=== PATIENT | male | born 1960 | race Caucasian/White ===

== ENCOUNTER → 2025-01-19 11:49 | Outpatient (REF) | payer MEDICARE, OTHER, SELFPAY | LOC: RAD 11:49 | PROVIDERS: ATTENDING PHYSICIAN Internal Medicine | DX: I73.9 Peripheral vascular disease, unspecified (principal) | CPT/HCPCS: 75635; Q9967 ==

== ENCOUNTER 2025-02-28 06:06 | Inpatient (IN) | payer MEDICARE, OTHER, SELFPAY ==
[2025-02-27 10:40] VITALS: BMI 28.5
[2025-02-27 11:04] LABS: Hematocrit 45.2 % (39.0-52.0); Hemoglobin 15.6 g/dL (13.0-18.0); Mean Corp Hgb Conc. 34.5 g/dL (33.0-37.0); Mean Corpuscular Volume 85.8 fL (80.0-94.0); Nucleated Red Blood Cells % 0 % (-); Platelet Count 225 10^3/uL (130-400); Red Cell Dist. Width 12.6 % (11.5-14.5)
[2025-02-27 11:14] LABS: INR 1.04; PT 13.9 Sec (11.4-14.6)
[2025-02-27 11:15] LABS: APTT 27.1 Sec (23.4-35.0)
[2025-02-27 11:41] LABS: Blood Urea Nitrogen 11 mg/dl (9-20); Calcium 9.4 mg/dl (8.4-10.2); Carbon Dioxide 24 mmol/L (22-30); Chloride 106 mmol/L (98-107); Estimated Creatinine Clearance 67 ml/min; Glucose 96 mg/dl (70-99); Potassium 4.5 mmol/L (3.5-5.1); Sodium 139 mmol/L (135-145); eGFR > 60.00
[2025-02-28] VITALS (12 sets, daily range): BP systolic 113–136; BP diastolic 70–88; BMI 28.7
--- NOTE | 2025-02-28 07:03 | W.SUR.PREOP ---
Pre-Operative Surgical Note
-
I have examined this patient prior to the performance of the scheduled procedure.
The patient's condition is unchanged from the time of the current History and
Physical and the patient is able to undergo the scheduled procedure.
[2025-02-28] MEDS: NSS 500 IV (07:05)
[2025-02-28] MEDS: PERIDEX 0.12% ORAL RINSE 15 ML PO (07:08)
[2025-02-28] MEDS: BACTROBAN NASAL 1 GRAM NASAL (07:08)
[2025-02-28] MEDS: VANCOCIN 530 MG IV (07:20)
--- NOTE | 2025-02-28 12:34 | W.SUR.POST ---
Surgical Immediate Post Op
Note
Pre Op Diagnosis: PAD
Post Op Diagnosis: PAD
Procedure Performed: Right to left femoral - femoral bypass, right femoral to above knee popliteal bypass with non-reversed ipsilateral vein, RLE completion angiogram
Primary Surgeon: Martinez Humphries MD
Outdoor Emergency Care Technician: JEFFERY Vinson
Anesthesia: GETA
Estimated Blood Loss: 50 ml
Fluids: See anesthesia flowsheet
Drains/Shunts: N/A
Specimens/Cultures: None
Doppler/Duplex/Angio (Y/N): Y, angio
Complications: None
Operative Findings: post prcoedure doppler PT signal at right foot and left Dp signal
[2025-02-28 13:23] LABS: Hematocrit 41.1 % (39.0-52.0); Hemoglobin 14.1 g/dL (13.0-18.0); Mean Corp Hgb Conc. 34.3 g/dL (33.0-37.0); Mean Corpuscular Volume 86.0 fL (80.0-94.0); Platelet Count 210 10^3/uL (130-400); Red Cell Dist. Width 12.6 % (11.5-14.5)
[2025-02-28 13:34] LABS: Glucose - Point of Care 123 mg/dl (70-99)
[2025-02-28 13:37] LABS: Blood Urea Nitrogen 10 mg/dl (9-20); Calcium 8.4 mg/dl (8.4-10.2); Carbon Dioxide 22 mmol/L (22-30); Chloride 108 mmol/L (98-107); Estimated Creatinine Clearance 74 ml/min; Glucose 133 mg/dl (70-99); Potassium 4.9 mmol/L (3.5-5.1); Sodium 136 mmol/L (135-145); eGFR > 60.00
--- NOTE | 2025-02-28 13:50 | CON.INTV ---
Consultation
Consultation Request
Date/Time Consultation Requested: 02/28
Date/Time Consultation Performed: 02/28
Reason for Consultation: Critical care
Medical History
-
History of Present Illness:
History obtained from the chart and reviewing outpatient records, and also history from sister by phone (Dr. Cindy Cardoza). 64-year-old male with history of hypercholesterolemia, peripheral arterial disease, who is found to have significant
arterial disease based on imaging done at [facility] earlier this year. Symptoms worsened despite extensive exercise program. Patient is now status post right fem-femoral bypass and angiogram, minimal blood loss, postprocedure Doppler signal
intact. We are asked to help from critical care standpoint 02/28/2025.
Patient evaluated in the PACU. He is without complaints. Denies any pain, shortness of breath, nausea, abdominal pain
.
PMH: History of BPH, bipolar disorder, bilateral inguinal hernia repair in , hypercholesteremia
Past Medical History
Past Medical History: None (See above)
Past Surgical History: None (See above)
Social History
Tobacco: Former Smoker (48 py, Quit 2023)
Alcohol: Daily (quit 2019)
Drug: None
Personal:
Living: Alone (lives in [place])
Employment: Employed (geology)
Family History
Family History: Other (Father from lymphoma age 56. Mother with dementia, aortic stenosis. Siblings healthy)
Allergies / Home Medications
Allergies
Allergy/AdvReac Type Severity Reaction Status Date / Time
Penicillins Allergy seizures Verified 02/28/25 06:54
Home Medications
�Medication �Instructions �Recorded �Confirmed �Last Taken �Type
alfuzosin 10 mg tablet,extended 10 mg PO DAILY Urinary Issue 02/22/25 02/28/25 02/28/25 04:00 History
release 24 hr
aripiprazole 15 mg tablet (Abilify) 15 mg PO DAILY Mental 02/22/25 02/28/25 02/28/25 04:00 History
Health/Anxiety
aspirin 81 mg capsule 81 mg PO DAILY Blood Clot 02/22/25 02/28/25 02/28/25 04:00 History
Prevention/Tx
atorvastatin 20 mg tablet 20 mg PO DAILY High Cholesterol 02/22/25 02/28/25 02/28/25 04:00 History
bupropion HCl 300 mg 24 hr tablet, 300 mg PO DAILY Mental 02/22/25 02/28/25 02/28/25 04:00 History
extended release (Wellbutrin XL) Health/Anxiety
escitalopram oxalate 20 mg tablet 20 mg PO DAILY Mental 02/22/25 02/28/25 02/28/25 04:00 History
(Lexapro) Health/Anxiety
Review of Systems
-
All other systems: Negative unless noted
Vitals / Labs / Diagnostic Testing
Vital Signs
Temp Pulse Resp BP Pulse Ox
97.6 F 96 16 113/71 96
02/28/25 13:08 02/28/25 13:45 02/28/25 13:45 02/28/25 13:30 02/28/25 13:45
Lab Data
02/28/25 13:15
02/28/25 13:15
Diagnostic Testing:
Physical Exam
-
HEENT: Normocephalic, Anicteric and Other (a line)
Cardiovascular: S1/S2, Regular Rhythm, Murmur (n), Rub (n) and Peripheral Edema (n)
Respiratory: Wheeze (n), Rales (n), Rhonchi (n) and Non-Labored Respirations
GI: Soft, Non Distended and Non Tender
Neurology: Awake, Alert and Other (moves all extremities)
Skin: Good Color
General: Comfortable
Assessment
-
64-year-old male with history of hypercholesterolemia, with persistent progressive claudication symptoms status post right to left femoral-femoral bypass and right femoral to above knee popliteal bypass 02/28/2025
S/p Rt to left fem-femoral bypass, right femoral to above-knee popliteal bypass
02/28/2025
Persistent, progressive claudication symptoms
Conditions present prior to admission
Hypercholesterolemia
History of bipolar disorder
BPH
67-bhja-umbn history of smoking quit 2023
Alcohol history, quit 2019
Plan/recommendations
At this time, patient is critically ill but appears to be comfortable
Is without pain at this time. Pulses intact, feet are warm. Bilateral groin dressing intact
According to sister, patient has a very 'addictive personality'. She is concerned about narcotic therapy, but accepts that he will need it.
IV fluids, pain management per vascular protocol
Vascular checks per protocol
Patient has seen cardiology preadmission, deemed low risk from cardiac standpoint.
Preprocedure EKG reviewed. Normal sinus rhythm
EKG upon arrival to ICU
Chest x-ray upon arrival to ICU
Reviewed with PACU nursing
We will follow
TCCT 31 min
[2025-02-28] MEDS: NSS 1000 IV (14:55)
--- NOTE | 2025-02-28 15:00 | PTCARENOTE ---
Received patient from PACU. patient is AAOx4. He is on simple mask per protocol, saturating 100%. Patient is sinus rhythm on monitor. , he will be advanced to a cholesterol lowering diet as tolerated. Patient has indwelling urinary catheter.
Has 4 SUREKHA drains/dressings. left groin, right groin, right inner thigh, right calf. left SUREKHA is blinking green, right leg surekha is blinking orange. Patient has pulses by doppler. left PT has been fleeting. Patient denies any numbness or
decreased sensation. Will review orders, admission assessment completed, patient's sister at bedside.
[2025-02-28] MEDS: TYLENOL 650 MG PO (15:31)
--- NOTE | 2025-02-28 15:54 | OR.RPT ---
Operative Report
Operative Report
PROCEDURE DATE: 02/28/2025
Preoperative diagnosis: Severe PAD with multilevel disease, debilitating claudication bilateral lower extremities.
Postoperative diagnosis: Same
Procedure:
1. Right to left femoral artery bypass with 8 mm ringed Propaten graft.
2. Right femoral to [id number]-ffa-[id number] popliteal artery bypass with ipsilateral nonreversed greater saphenous vein conduit.
3. Diagnostic aortogram and pelvic angiogram.
Surgeon: Yandel
Title Investigator: LANI Powell, required for aspects of procedure including assistance with traction/countertraction, following a suture line, assistance with closure.
Complications: None
Anesthesia: General
Indications for procedure:
Debilitating bilateral lower extremity claudication. Severe peripheral arterial disease multilevel disease. Discussed plan for right to left femoral to femoral artery bypass with right femoral to [id number] popliteal artery bypass. Discussed
exploring the vein as it appeared slightly smaller on CT scan imaging though vein mapping appeared reasonable. Risk/benefits/alternatives of procedure were fully discussed. Patient understood and wished to proceed.
Description of procedure:
Patient was identified brought to the operating room placed on the table in supine position. After the adequate administration of anesthesia he was prepped and draped in the standard surgical fashion. A standard preoperative timeout was undertaken
and everybody was in agreement the plan. A longitudinal incision was made in the right groin is carried through the skin to be tendinous tissue. Electrocautery was used to dissect down to the level of the inguinal ligament. Any crossing lymphatic
type structures were ligated tween silk ties and then divided. Self-retaining retractors were placed. The common femoral artery was identified as emerged from underneath the inguinal ligament. There was a very short common femoral artery with a
high bifurcation. Proximal profunda and superficial femoral artery were carefully circumferentially dissected and Vesseloops passed around it. There was a reasonable pulse in the artery. There is a good pulse in the profundus as well which was
completely soft. The SFA had a pulse at the very origin but then did not consistent with CT scan findings. Once I mobilized and controlled the common femoral and these branches, I then turned my attention to the left groin.
A longitudinal incision was made in the left groin similarly. This was carried through the skin to be tendinous tissue and electrocautery used to dissect down to the level of the inguinal ligament. Any crossing lymphatic type structures ligated
between silk ties and divided. Self-retaining retractors placed. Common femoral artery was identified as emergent underneath it in the ligament. It was a relatively soft vessel. There is no pulsation in it. Slightly longer length of common
femoral into the bifurcation, and a more normal-appearing bifurcation (on the right side the bifurcation was sort of splayed laterally, but on the left side a more normal anatomic appearing profunda more posterior and slightly lateral than straight
lateral to the SFA). I dissected the profunda beyond its origin and it was noted to be soft. Vessel loop passed around it. I dissected the SFA after a couple centimeters of mobilization and then passed a vessel Brana. It was also noted to be
soft. Note a suprapubic subcutaneous tunnel was created using aortic clamp and a an umbilical tape passed through the tunnel to hold the place for passage of our femoral to femoral artery bypass graft.
Now I turned my attention to expose the above-knee popliteal artery. A longitudinal incision was made in the medial distal right thigh that was carried through the skin to be tames tissue. Electrocautery was used to dissect through the crural
fascia layer and then through the loose areolar fatty tissue. I then identified the popliteal artery above the knee. I carefully dissected away from anserine structures and great care to avoid injury to structures. I passed a vessel loop around
proximally and distally after circumferential dissection.
Now I turned my attention to mobilizing the greater saphenous vein. Skip incisions were made through the medial right thigh and proximal calf extending just beyond the groin down to the below the knee level. Through the skip incisions the greater
saphenous vein was fully mobilized. Any branches were ligated between silk ties and clips and then divided. Once I mobilized a suitable length of greater saphenous vein, I ligated approximately (there was still a few branches until the
saphenofemoral junction) with a silk suture ligature and a clip. I then transected. Distally I ligated with a heavy silk tie and a clip. I then transected there. I then distended the vein under heparinized saline. It distended very well. We
elected to maintain it in a nonreversed fashion.
Now a Mela tunneler was used to create a subsartorial tunnel. This tunneled between the right femoral artery exposure site and the [id number] popliteal artery exposure site. With the Mela tunneler in place, the patient was given an
appropriate dose of heparin (7000 units). After circulation of heparin, I turned my attention to the left groin. The profunda was clamped with a profunda clamp. The SFA was similarly clamped distally. The common femoral artery was then clamped
as well. A longitudinal arteriotomy was made on the common femoral artery extending onto the SFA. The 8 mm ringed [place] Propaten graft was then tunneled through the suprapubic tunnel. An arteriotomy was made in the left common femoral artery
extending onto the proximal SFA. I now beveled the graft in the left groin and sewed an end to side anastomosis between the graft and the common femoral hoding over the profunda origin onto the SFA. Of note I inspected the origin of the profunda,
and it was widely patent with no clear evidence of stenosis. At least 3 mm origin was noted. This anastomosis was fashioned using a running [place] CV 6 suture. I then completed and tied down the suture line. Next I released my clamps on the [place]
artery and clamped the graft. There was good flow through the [place] artery system (albeit not pulsatile) and I backbled through the graft. Hemostasis was noted.
Now I turned my attention to the right groin. I then clamped the profunda well distally. I elected to try to anastomose the femoral to femoral graft on the common femoral hooding onto the profunda. But then I isolated a location slightly more
distal on the profunda (long segment of profunda without any branches beyond the origin allowed for this) so as to sew the proximal anastomosis of the vein bypass graft. The profunda was clamped distally and the common femoral artery was also
clamped. (Derra clamp). SFA had a vessel loop which was double looped and tightened. Therefore I now made an arteriotomy on the common femoral artery with an 11 blade and extended with the Parry scissors onto the very origin of the profunda. I
then removed the rings on the bypass graft after trimming it. I then beveled it. And sewed an end-to-side anastomosis using a running [place] CV 6 suture. Prior to completing and tying down my suture line I backbled the [place] artery and then
flushed out the graft by temporarily releasing the graft clamp, and then completed and tied my suture line after flushing heparinized saline. I now released clamps. There was excellent pulsatile flow into the graft. I could now feel good
pulsation in the left groin and the graft and into the SFA and profunda on the left side as well. Hemostasis was noted.
Now I reclamped the right common femoral artery and profunda and tightened vessel loop on SFA. I clamped the graft as well. I now made an arteriotomy on the profunda distal to the graft anastomosis. This was done with an 11 blade. I extended
using a Parry scissor. I now brought the saphenous vein onto the field and spatulated it and sewed an end-to-side anastomosis to the profunda here using a running 6-0 Prolene suture. I completed and tied down my suture line. Next I released
clamps on the right femoral system. There was now excellent pulsatile flow into the vein bypass graft. I now used a [place] valvulotome and ran it through twice to confirm no retained valves to valvulotomize the vein graft. Once I did this I
marked the anterior surface under distention to avoid any kinking or twisting and then passed it through the tunnel that I created prior. I now placed a bulldog clamp on the vein graft.
Now I turned my attention to the [id number]-[id number] popliteal exposure with the vein bypass graft here in the field. I elected to do an end-to-end anastomosis as based on the CT scan imaging there was no proximal flow in the SFA proximal to the
popliteal exposure site. (No reason for an end to side anastomosis/no advantage). Therefore after clamping the popliteal artery distally, I ligated the popliteal artery proximally with a heavy silk tie as well as a silk suture ligature. I then
transected it (a local branch was ligated between silk ties and divided to allow this. There was a little bit of plaque and therefore I retransected it more distally. There was still little plaque which I locally endarterectomized a small portion
of plaque and then the wall looked good. Now is satisfied. I then trimmed and slightly spatulated the distal aspect of the vein bypass graft and sewed an end-to-end anastomosis to the popliteal artery here using a running 6-0 Prolene suture.
Prior to completing and tying down my suture line I backbled the [place] popliteal artery, I then flushed out the vein bypass graft. I flushed heparinized saline. I then completed and tied down my suture line. Next I released my clamp on the
popliteal artery distally and released the bulldog clamp on the vein graft. There is now good pulsatile flow into the popliteal artery. Doppler confirmed excellent phasic signal as well as a phasic signal at the posterior tibial artery at the
ankle. These were completely graft dependent signals. At this point I was satisfied.
However I elected to confirm that there was no significant inflow issue (on that CT scan there was a question as to whether there was an external iliac artery stenosis to my interpretation). I therefore then inserted a micropuncture needle and then
catheter over the micropuncture wire into the fluid of the right limb of the femoral to femoral artery bypass in a retrograde fashion into the iliac system. Aortogram and pelvic angiogram demonstrated patent right common and external iliac artery.
There was just mild stenosis in the proximal external iliac artery diffusely but it really was not significant, certainly less than 30%. There was no major stenosis otherwise just luminal irregularities throughout. I could see good filling into
the femoral to femoral artery bypass into the left groin/profundus/SFA. I could see the proximal vein bypass graft filling briskly as well. At this point I was very satisfied. I then removed the micropuncture sheath and repaired the small sheath
entry site with [id number] 6-0 Prolene suture. Hemostasis was fully achieved.
I then meticulously achieved hemostasis at all surgical sites. Protamine was given reverse the heparin. Then all sites were irrigated. Hemostasis was confirmed. The saphenectomy sites were closed with running 3-0 Vicryl followed by skin clips.
The bilateral groin incisions and the above-knee popliteal artery exposure incision sites were closed with layers of 2-0 Vicryl followed by 3-0 Vicryl followed by skin clips. Dressings were applied. All sponge, needle, instrument counts were
correct at the end of the case. The patient tolerated procedure well. He was transported to recovery room in stable condition.
[2025-02-28] MEDS: ROXICODONE 5 MG PO ×2 (16:33→20:57)
[2025-02-28] MEDS: DILAUDID 0.5 MG IV ×2 (17:49→21:56)
--- NOTE | 2025-02-28 20:00 | PTCARENOTE ---
assumed care, pt Ox3, able to make needs known, c/o 12/19 R groin pain refer to MAR, Sinus on the monitor, doppler pulses, trace to LE, R rad A-line zeroed, lungs clear SpO2 100 2L NC, BSx4, thermistor cantu c yellow output, Q1 neurovascular checks
per worklist, x4 SUREKHA drains (R and L groin, R thigh, and R calf), nghia hugger applied to LE, 20G RFA, 18G LFA, NS 80ml, Hep 5ml per order, vascular FIRE ENGINE PUMP OPERATOR made rounds, call blackman within reach, otherwise refer to documentation.
[2025-03-01] VITALS (13 sets, daily range): BP systolic 97–168; BP diastolic 53–102; BMI 30.1
--- NOTE | 2025-03-01 00:06 | PTCARENOTE ---
systems reviewed, no changes from previous assessment, CHG bath, otherwise refer to documentation
[2025-03-01] MEDS: NSS 1000 IV (00:56)
[2025-03-01] MEDS: DILAUDID 0.5 MG IV (02:18)
[2025-03-01 04:09] LABS: Hematocrit 35.6 % (39.0-52.0); Hemoglobin 12.2 g/dL (13.0-18.0); Mean Corp Hgb Conc. 34.3 g/dL (33.0-37.0); Mean Corpuscular Volume 86.4 fL (80.0-94.0); Platelet Count 193 10^3/uL (130-400); Red Cell Dist. Width 12.7 % (11.5-14.5)
--- NOTE | 2025-03-01 04:09 | PTCARENOTE ---
systems reviewed, labs sent, weight obtained, otherwise refer to documentation
[2025-03-01 04:26] LABS: INR 1.10; PT 14.7 Sec (11.4-14.6)
[2025-03-01 04:27] LABS: APTT 31.1 Sec (23.4-35.0)
[2025-03-01 04:42] LABS: Blood Urea Nitrogen 12 mg/dl (9-20); Calcium 8.0 mg/dl (8.4-10.2); Carbon Dioxide 24 mmol/L (22-30); Chloride 109 mmol/L (98-107); Estimated Creatinine Clearance 82 ml/min; Glucose 108 mg/dl (70-99); Potassium 4.6 mmol/L (3.5-5.1); Sodium 137 mmol/L (135-145); eGFR > 60.00
--- NOTE | 2025-03-01 07:18 | W.PN.INTV ---
Today's Communication / Plan
Recommendations
Check EKG
Replete calcium
Pain control, minimize if able. Sister states patient has 'addictive personality'
Anticoagulation per vascular
Keep in ICU today
Assessment
-
64-year-old male with history of hypercholesterolemia, with persistent progressive claudication symptoms status post right to left femoral-femoral bypass and right femoral to above knee popliteal bypass 02/28/2025
S/p Rt to left fem-femoral bypass, right femoral to above-knee popliteal bypass
02/28/2025
Persistent, progressive claudication symptoms
Conditions present prior to admission
Hypercholesterolemia
History of bipolar disorder
BPH
[id number] history of smoking quit 2023
Alcohol history, quit 2019
Plan/recommendations
At this time, patient appears to be comfortable, in good spirits
Hemodynamically stable
Calcium level 8.0
Is without pain at this time. Pulses intact, feet are warm.
Chest x-ray unremarkable
Moving forward
Continue with management per vascular surgery
Macdonald catheter, A-line to be discontinued
Patient being transition to Compass protocol with aspirin, Xarelto, Heparin to be discontinued
According to sister, patient has a very 'addictive personality'. She is concerned about narcotic therapy, but accepts that he will need it.
IV fluids, pain management per vascular protocol
Hopefully can minimize pain meds as able
Vascular checks per protocol
Patient has seen cardiology preadmission, deemed low risk from cardiac standpoint.
Preprocedure EKG reviewed. Normal sinus rhythm
Obtain EKG
Reviewed with critical care nursing
We will follow
Subjective Dataa
Subjective Data
Date of Service:
Date of Service: March 01, 2025
Subjective:
Patient feels well. Denies shortness of breath, chest pain, lightheadedness. Primary complaint is leg pain
Objective Data
Data Reviewed
Vital Signs / I&O / Oxygen:
Vital Signs
Temp Pulse Resp BP Pulse Ox
98.3 F 66 10 123/72 99
03/01/25 04:09 03/01/25 06:00 03/01/25 06:00 02/28/25 19:00 03/01/25 06:00
Intake and Output
02/28/25 03/01/25 03/02/25
06:59 06:59 06:59
Intake Total 2039 / 2039
Output Total 2274 / 2274
Balance -235 / -235
SaO2 99
Nasal Cannula flow liters per 2
minute
Physical Exam
General: Comfortable
HEENT: Normocephalic and Anicteric
Cardiovascular: S1-S2, Regular Rhythm, Murmur (n), Rub (n) and Other (Right groin intact)
Respiratory: Wheeze (n), Crackles (n), Rhonchi (n) and Non-Labored Respirations
GI: Soft, Non Distended and Non Tender
Neurology: Awake, Alert and No Motor Deficits
Skin: Cyanosis (n), Jaundice (n) and Rash (n)
Labs/Micro/Reports
Lab Data
03/01/25 04:04
03/01/25 04:04
Laboratory Results
02/28/25 03/01/25
16:09 04:04
PT Cancelled 14.7 H
INR Cancelled 1.10
APTT Cancelled 31.1
[2025-03-01] MEDS: ASPIR LOW (ENTERIC COATED) 81 MG PO (07:35)
[2025-03-01] MEDS: FLOMAX 0.4 MG PO (07:35)
[2025-03-01] MEDS: WELLBUTRIN XL (24 hour extended release) 300 MG PO (07:36)
[2025-03-01] MEDS: PROTONIX 40 MG PO (07:36)
[2025-03-01] MEDS: LIPITOR 20 MG PO (07:36)
[2025-03-01] MEDS: ROXICODONE 5 MG PO ×4 (07:36→20:56)
[2025-03-01] MEDS: LEXAPRO 20 MG PO (07:36)
[2025-03-01] MEDS: TYLENOL 650 MG PO (07:37)
--- NOTE | 2025-03-01 07:50 | W.PN.VS ---
Addendum entered and electronically signed by Martinez Humphries MD 03/01/25 09:40:
Seen and examined with LANI Campos. Agree with findings as noted below. Patient without significant complaints. Bilateral groin and right lower extremity dressings are clean dry and intact. No hematomas noted. Right foot warm with excellent
dopplerable DP signal. Left foot warm with good dopplerable signals. Plan/as discussed and noted below.
Original Note:
Today's Communication / Plan
-
Patient seen and examined at bedside with Dr. Martinez Humphries M.D., below plan reviewed with attending.
Assessment/Plan
-
Assessment: 64-year-old male POD #1 Right to left femoral artery bypass with 8 mm ringed Propaten graft. Right femoral to [id number]-rly-[id number] popliteal artery bypass with ipsilateral nonreversed greater saphenous vein conduit. Diagnostic aortogram and
pelvic angiogram.
Plan:
Discontinue IV fluids
Discontinue arterial line
Out of bed to chair today, will progress ambulation tomorrow
Discontinue Donato hugger
Discontinue Macdonald catheter
Discontinue heparin infusion and transition to Compass protocol of 81 mg p.o. daily and Xarelto 2.5 mg p.o. twice daily
Continue ICU level care today
Continue neurovascular checks
Subjective Data
-
Date of Service: March 01, 2025
Patient seen examined at bedside, reports well-managed postoperative pain. Denies nausea, vomiting, fever, and chills.
Objective Data
-
Vital Signs
Temp Pulse Resp BP Pulse Ox
98.4 F 73 13 104/59 98
03/01/25 07:30 03/01/25 07:30 03/01/25 07:30 03/01/25 07:30 03/01/25 07:30
Intake and Output
02/28/25 03/01/25 03/02/25
06:59 06:59 06:59
Intake Total 2039
Output Total 2274 150 / 150
Balance -235 / -300 -65 / -65
Intake:
Oral fluids 480 / 480
IV fluids (Total) 1559
Heparin 80 / 5 / 5
NSS 200 / 200
Nss 1,000 ml @ 80 mls/hr IV . 1280 / 1360 80 / 80
[id number] ELSA Rx#:[id number]
Output:
Urine, Macdonald 2274 150 / 150
Lab Results
03/01/25 04:04
03/01/25 04:04
Calcium 8.0 mg/dl (8.4-10.2) L 03/01/25 04:04
Physical Exam
-
No apparent distress, resting bed comfortably
No tachycardia
No dyspnea on room air
ABD rotund, nontender, nondistended
Right lower extremity [place] dressing clean, dry, and intact, right foot warm, right DP and PT signal by Doppler
Left groin dressing clean, dry, and intact, left foot warm, left DP signal by Doppler
Macdonald draining clear yellow urine
[2025-03-01] MEDS: ABILIFY 15 MG PO (08:29)
[2025-03-01] MEDS: XARELTO 2.5 MG PO ×2 (08:29→19:57)
[2025-03-01] MEDS: CALCIUM GLUCONATE 100 IV (09:30)
--- NOTE | 2025-03-01 09:46 | PTCARENOTE ---
Bedside check of dressings and pulses done with change of shift this am and without change. IVF and heparin gtts, иринаalondra solis and Donato claritagger have been discontinued as ordered. Pt medicated for pain as charted. Assisted oob to chair with min
assist of 1. Increased pain noted to both groins and R knee with movement, up in chair. Pt aware that this is normal. Sat in chair with feet down for an hour, then reclined. Pain improved with reclining. Tolerated breakfast. Encouraged to do
ROM to assist with swelling/pain/movement while in chair. Using IS with reminder. Initiated on Xarelto as ordered. [employer] education materials given regarding safely taking blood thinners and on Xarelto. Call blackman in reach. Otherwise please
see work list.
[2025-03-01] MEDS: TYLENOL 1000 MG PO ×3 (11:15→23:38)
--- NOTE | 2025-03-01 12:42 | CM ---
Addendum entered by Selma Baron 03/01/25 14:10:
following discussion referral also sent to [facility] [phone]. CM and [facility] liaison will review options with Dr. Cardoza for confirmation of plan.
Addendum entered by Selma Baron 03/01/25 13:50:
Dr. Cardoza spoke with [place] and plan is for referral to send [facility] for follow up at discharge after stay in [place] with his sisters. will send referral to [facility] via all scripts.
Original Note:
Patient seen at bedside in ICU with patient sister, Dr. Cardoza also present. Patient plan is for discharge home to [facility] with his sisters also present to support patient and sister, Dr. Cardoza indicated her plan to complete wound care her self.
Patient sister, stated she will contact PCP if patient continues to need VN services when he returns to home in [place]. Patient sisters very attentive and plans to contact [facility] if patient needs continued supports. URI spoke with liaison with
[facility] and she will meet with patient sister to review plan when medically appropriate for discharge. CM will continue to follow for discharge planning needs.
Plan; home with patient sisters, [facility] to follow as needed.
--- NOTE | 2025-03-01 13:15 | PTCARENOTE ---
Pt returned to bed again with minimal assist. Pain 10/10 when standing with weight on r leg, but improved when back in bed. Medicated as charted. Sister in to see pt and updated.
--- NOTE | 2025-03-01 14:15 | PTCARENOTE ---
Pt sleeping in bed.
--- NOTE | 2025-03-01 16:42 | PTCARENOTE ---
Pt napped for a couple hours. Groin sites unchanged. Pulses consistent. Hadn't voided since cantu removed, bladder scanned for 454 and pt then voided 450.
--- NOTE | 2025-03-01 20:44 | PTCARENOTE ---
Received pt resting in bed, AAOx3. C/O 01/18 pain to RLE and ribs (from recent fall) but expresses he wants to wait until oxycodone due again ~2099. SR on tele. HR 60-70. Afebrile. B/L DP and PT pulses by doppler. Trace LE edema. On RA, spo2 96%.
Lungs dim at bases with fine crackles L base. I.S. encouraged - reached 1999. RLE and L groin with SUREKHA drains. Q4 neurovasc checks ongoing
[2025-03-01 22:02] LABS: Hepatitis C Antibody Reactive (Negative)
--- NOTE | 2025-03-01 23:58 | PTCARENOTE ---
No changes in assessment. Pt resting when undisturbed
[2025-03-02] VITALS (21 sets, daily range): BP systolic 101–145; BP diastolic 58–97; PULSE 88; O2SAT 98; BMI 29.7
[2025-03-02 04:58] LABS: Hematocrit 38.3 % (39.0-52.0); Hemoglobin 13.1 g/dL (13.0-18.0); Mean Corp Hgb Conc. 34.2 g/dL (33.0-37.0); Mean Corpuscular Volume 87.4 fL (80.0-94.0); Platelet Count 165 10^3/uL (130-400); Red Cell Dist. Width 12.8 % (11.5-14.5)
[2025-03-02] MEDS: ROXICODONE 5 MG PO ×4 (05:03→20:32)
[2025-03-02 05:24] LABS: Blood Urea Nitrogen 12 mg/dl (9-20); Calcium 8.8 mg/dl (8.4-10.2); Carbon Dioxide 26 mmol/L (22-30); Chloride 105 mmol/L (98-107); Estimated Creatinine Clearance 74 ml/min; Glucose 99 mg/dl (70-99); Potassium 4.3 mmol/L (3.5-5.1); Sodium 137 mmol/L (135-145); eGFR > 60.00
--- NOTE | 2025-03-02 07:16 | W.PN.INTV ---
Today's Communication / Plan
Recommendations
Pain management continues
Bowel regimen
Anticoagulation per vascular protocol
Patient qualifies for lung cancer screening. Would recommend outpatient low dose CT imaging
Reviewed with patient's sister at bedside who is a physician
Patient transferred out of ICU. We will sign off. Please call with questions
Assessment
-
64-year-old male with history of hypercholesterolemia, with persistent progressive claudication symptoms status post right to left femoral-femoral bypass and right femoral to above knee popliteal bypass 02/28/2025
S/p Rt to left fem-femoral bypass, right femoral to above-knee popliteal bypass
02/28/2025
Persistent, progressive claudication symptoms
Conditions present prior to admission
Hypercholesterolemia
History of bipolar disorder
BPH
[id number] history of smoking quit 2023
Alcohol history, quit 2019
Plan/recommendations
At this time, patient appears to be comfortable, in good spirits
Hemodynamically stable
Pain is controlled
Receiving Tylenol [id number]
Passing gas, has yet to move bowels
Moving forward
Continue with management per vascular surgery
Macdonald catheter discontinued
Patient transitioned to Compass protocol with aspirin, Xarelto 2.5 mg twice a day
Vascular checks per protocol, pulses intact
Patient has seen cardiology preadmission, deemed low risk from cardiac standpoint.
Preprocedure EKG reviewed. Normal sinus rhythm
EKG within normal limits
Reviewed with critical care nursing
Reviewed with sister at bedside
Patient qualifies for lung cancer screening.
Would consider low-dose lung cancer screening at some point postdischarge. Reviewed with sister who is a physician
Patient transferred out of ICU. We will sign off. Please call with questions
Subjective Dataa
Subjective Data
Date of Service:
Date of Service: March 02, 2025
Subjective:
Patient feels well. Pain is controlled. Has some mild left hip discomfort, states that he fell out of bed prior to admission. Otherwise denies lightheadedness, shortness of breath, cough, abdominal pain. Sister at bedside. Patient sitting in
chair
Objective Data
Data Reviewed
Vital Signs / I&O / Oxygen:
Vital Signs
Temp Pulse Resp BP Pulse Ox
97.4 F 69 12 125/63 96
03/02/25 07:13 03/02/25 06:00 03/02/25 06:00 03/02/25 06:00 03/01/25 20:00
Intake and Output
03/01/25 03/02/25 03/03/25
06:59 06:59 06:59
Intake Total 2040 / 2125 1550 / 1550
Output Total 2275 / 2575 2175 / 2175 250 / 250
Balance -235 / -450 -625 / -625 -250 / -250
SaO2 96
Nasal Cannula flow liters per 2
minute
Physical Exam
General: Comfortable
HEENT: Normocephalic and Anicteric
Cardiovascular: S1-S2, Regular Rhythm, Murmur (n), Rub (n), Other (Pulses present) and Other (Right groin intact, right lower extremity bandage in place)
Respiratory: Wheeze (n), Crackles (Few at base), Rhonchi (n) and Non-Labored Respirations
GI: Soft, Non Distended and Non Tender
Neurology: Awake, Alert and No Motor Deficits
Skin: Cyanosis (n), Jaundice (n) and Rash (n)
Labs/Micro/Reports
Lab Data
03/02/25 04:47
03/02/25 04:47
[2025-03-02] MEDS: TYLENOL 1000 MG PO ×2 (07:57→13:54)
[2025-03-02] MEDS: LIPITOR 20 MG PO (07:58)
[2025-03-02] MEDS: WELLBUTRIN XL (24 hour extended release) 300 MG PO (07:58)
[2025-03-02] MEDS: PROTONIX 40 MG PO (07:58)
[2025-03-02] MEDS: ABILIFY 15 MG PO (07:58)
[2025-03-02] MEDS: XARELTO 2.5 MG PO ×2 (07:58→20:31)
[2025-03-02] MEDS: LEXAPRO 20 MG PO (07:58)
[2025-03-02] MEDS: FLOMAX 0.4 MG PO (07:58)
[2025-03-02] MEDS: ASPIR LOW (ENTERIC COATED) 81 MG PO (07:58)
--- NOTE | 2025-03-02 08:17 | W.PN.VS ---
Addendum entered and electronically signed by Pravin Macdonald III, MD 03/02/25 10:48:
This patient was seen and examined in collaboration with JEFFERY Vinson. I agree with the history and physical exam as well as the assessment and plan.
Signed:
Pravin Macdonald III, MD
Vascular Surgery
[facility]
Original Note:
Today's Communication / Plan
-
Seen and assessed with Dr. Macdonald
Assessment/Plan
-
Assessment: 64-year-old male POD #2 Right to left femoral artery bypass with 8 mm ringed Propaten graft. Right femoral to [id number] popliteal artery bypass with ipsilateral nonreversed greater saphenous vein conduit. Diagnostic aortogram and
pelvic angiogram.
Plan:
PT/Ambulation
Discharge planning
Continue Compass protocol of 81 mg p.o. daily and Xarelto 2.5 mg p.o. twice daily
Transfer to telemetry 2 [place], 2 [facility]
Subjective Data
-
Date of Service: March 02, 2025
Patient seen at bedside this a.m. with Dr. Macdonald. Patient offers no complaints this time. No events overnight.
Objective Data
-
Vital Signs
Temp Pulse Resp BP Pulse Ox
97.4 F 79 12 139/73 96
03/02/25 07:13 03/02/25 08:00 03/02/25 08:00 03/02/25 08:00 03/01/25 20:00
Intake and Output
03/01/25 03/02/25 03/03/25
06:59 06:59 06:59
Intake Total 2039 / 2124 1550 / 1550
Output Total 2275 / 2575 2175 / 2175 250 / 250
Balance -235 / -450 -625 / -625 -250 / -250
Intake:
Oral fluids 480 / 480 1360 / 1360
IV fluids (Total) 1560 / 1645 90 / 90
Heparin 80 / 85 10 / 10
NSS 200 / 200
Nss 1,000 ml @ 80 mls/hr IV . 1280 / 1360 80 / 80
[id number] ELSA Rx#:[id number]
IV piggybacks 100 / 100
Output:
Urine, Macdonald 2275 / 2575 525 / 525
Urine, Voided 1650 / 1650 250 / 250
Lab Results
03/02/25 04:47
03/02/25 04:47
Calcium 8.8 mg/dl (8.4-10.2) 03/02/25 04:47
Physical Exam
-
No apparent distress, resting bed comfortably
No tachycardia
No dyspnea on room air
ABD rotund, nontender, nondistended
Right lower extremity Tisha dressing clean, dry, and intact, right foot warm, right DP and PT signal by Doppler
Left groin dressing clean, dry, and intact, left foot warm, left DP signal by Doppler
--- NOTE | 2025-03-02 08:29 | PTCARENOTE ---
Rec'd care of patient at 0700. Patient alert and oriented. MAEx4. NSR on tele. Q4hr b/l LE neurovascular checks continued; see worklist. B/l groin and RLE nyla drains maintained. Pulse ox 97-98% on RA. Lung sounds diminished in b/l bases. IS
encouraged. +BS. Appetite good. Voiding via urinal. Assisted oob to chair at 0810. See worklist for full assessment and care. Downgraded to tele level.
[2025-03-02] MEDS: DILAUDID 0.5 MG IV (12:09)
--- NOTE | 2025-03-02 15:04 | TRANSFER ---
Patient transferred with belongings to . SUREKHA dressings changed by vascular screenplay writer prior to transfer.
--- NOTE | 2025-03-02 15:15 | CM ---
Addendum entered by Selma Baron 03/02/25 16:12:
Patient sister took care of the xarelto and is aware it is 93.00$ and she requested medications be changed to [facility].
Original Note:
Patient seen earlier today in ICU. Patient for transfer to [address] [place] [address]. Patient sister and patient confirmed updated plan. Patient is to go tomorrow with sister's to local [facility] and then will go to his sister's home in [place] and referral has
been sent to [facility] in [place], information with Katherine from [facility] and patient sister Dr. Cardoza to provide orders. Patient family very involved and plan is for family to transport. CM will continue to follow for discharge planning needs.
Plan; with family to [facility] then to [place] with VN; referral pending acceptance.
--- NOTE | 2025-03-02 15:24 | W.[place]-PDMP ---
[place]-PDMP
-
Checked the [place]- Prescription Drug Monitoring Program website, no red flags identified; safe to proceed with prescription.
--- NOTE | 2025-03-02 15:35 | W.PN.UPDATE ---
Update Note
Progress Note Update
Right lower extremity and left groin dressing removed, staple sites clean, dry, and intact and well-approximated. Tisha dressings all replaced by this provider.
[2025-03-02] MEDS: TYLENOL PO (17:19)
[2025-03-03] MEDS: ROXICODONE 5 MG PO (02:05)
[2025-03-03 03:05] VITALS: BP 102/65
[2025-03-03] MEDS: TYLENOL 1000 MG PO ×3 (06:07→12:25)
[2025-03-03 07:00] VITALS: BP 136/76
[2025-03-03] MEDS: FLOMAX 0.4 MG PO (09:03)
[2025-03-03] MEDS: PROTONIX 40 MG PO (09:03)
[2025-03-03] MEDS: ABILIFY 15 MG PO (09:03)
[2025-03-03] MEDS: WELLBUTRIN XL (24 hour extended release) 300 MG PO (09:03)
[2025-03-03] MEDS: LIPITOR 20 MG PO (09:03)
[2025-03-03] MEDS: ASPIR LOW (ENTERIC COATED) 81 MG PO (09:03)
[2025-03-03] MEDS: XARELTO 2.5 MG PO (09:06)
[2025-03-03] MEDS: LEXAPRO 20 MG PO (09:06)
--- NOTE | 2025-03-03 10:28 | W.PN.VS ---
Today's Communication / Plan
-
dc to home
Assessment/Plan
-
Assessment: 64-year-old male POD #3 Right to left femoral artery bypass with 8 mm ringed Propaten graft. Right femoral to [id number] popliteal artery bypass with ipsilateral nonreversed greater saphenous vein conduit. Diagnostic aortogram and
pelvic angiogram.
Plan:
DC today
Subjective Data
-
Date of Service: March 03, 2025
NAEO. Resting comfortably. SUREKHA dressings removed
Objective Data
-
Vital Signs
Temp Pulse Resp BP Pulse Ox
97.5 F 72 14 136/76 98
03/03/25 07:00 03/03/25 07:00 03/03/25 07:00 03/03/25 07:00 03/03/25 07:00
Intake and Output
03/02/25 03/03/25 03/04/25
06:59 06:59 06:59
Intake Total 1550 / 1550 1200 / 1200
Output Total 2175 / 2175 1875 / 1875
Balance -625 / -625 -675 / -675
Intake:
Oral fluids 1360 / 1360 1200 / 1200
IV fluids (Total) 90 / 90
Heparin 10 / 10
Nss 1,000 ml @ 80 mls/hr IV . 80 / 80
[id number] ELSA Rx#:[id number]
IV piggybacks 100 / 100
Output:
Urine, Macdonald 525 / 525
Urine, Voided 1650 / 1650 1875 / 1875
Other:
Number of approximated LARGE 1
amounts of urine
Lab Results
03/02/25 04:47
03/02/25 04:47
Calcium 8.8 mg/dl (8.4-10.2) 03/02/25 04:47
Physical Exam
-
No apparent distress, resting bed comfortably
No tachycardia
No dyspnea on room air
ABD rotund, nontender, nondistended
incisions C/D/I, right foot warm, right DP and PT signal by Doppler
Left groin dressing clean, dry, and intact, left foot warm, left DP signal by Doppler
--- NOTE | 2025-03-03 10:30 | W.DS.TRANS ---
DC Summary - [employer]
-
Discharge Instructions:
Discharge Diagnosis/Procedures Right to left femoral artery bypass with 8 mm
ringed Propaten graft.
Right femoral to mulxo-ypj-assd popliteal artery
bypass with ipsilateral nonreversed greater
saphenous vein conduit.
Diagnostic aortogram and pelvic angiogram.
Diet As tolerated
Activity No strenuous activity
Driving Restrictions Not until seen by your Dr
Bathing Restrictions OK to Shower
Instructions:
Stand-Alone Forms: Vascular Surg Discharge Instr
Changes to Home Medications: No
Discharge Medications:
DC Medications w/original date entered in [employer]
alfuzosin 10 mg tablet,extended release 24 hr 10 mg PO DAILY Urinary Issue 02/22/25
aripiprazole 15 mg tablet (Abilify) 15 mg PO DAILY Mental Health/Anxiety 02/22/25
aspirin 81 mg capsule 81 mg PO DAILY Blood Clot Prevention/Tx 02/22/25
atorvastatin 20 mg tablet 20 mg PO DAILY High Cholesterol 02/22/25
bupropion HCl 300 mg 24 hr tablet, extended release (Wellbutrin XL) 300 mg PO DAILY Mental Health/Anxiety 02/22/25
escitalopram oxalate 20 mg tablet (Lexapro) 20 mg PO DAILY Mental Health/Anxiety 02/22/25
oxycodone 5 mg tablet 5 mg PO Q4HPRN PRN moderate pain #10 tabs 03/02/25
rivaroxaban 2.5 mg tablet (Xarelto) 2.5 mg PO BID #180 tabs 03/02/25
Home Medication Changes
Pending Results: No
--- NOTE | 2025-03-03 10:51 | CM ---
Addendum entered by Jennifer Vaughan RN 03/03/25 11:02:
IMM reviewed.
Original Note:
Reviewed the chart notes. [facility] accepted patient in [facility]. CM contacted [facility] for fax.
[facility] fax: [phone]
[2025-03-03 11:00] VITALS: BP 127/65
[2025-03-03 15:00] VITALS: BP 134/80
== END 2025-03-03 16:00 | disposition home health service (06) | DRG 254 ==
LOC: 2 NORTH 06:06
PROVIDERS: Nurse Practitioner; ADMITTING PHYSICIAN Surgery Vascular Surgery; CONSULT PHYSICIAN Internal Medicine Critical Care Medicine; PRIMARYCARE PHYSICIAN Internal Medicine
PROC: 041K09L Bypass Right Femoral Artery to Popliteal Artery with Autologous Venous Tissue, Open Approach (ICD-10-PCS; 2025-02-28)
PROC: 041L0JH Bypass Left Femoral Artery to Right Femoral Artery with Synthetic Substitute, Open Approach (ICD-10-PCS; 2025-02-28)
PROC: 06BP0ZZ Excision of Right Saphenous Vein, Open Approach (ICD-10-PCS; 2025-02-28)
DX: I73.9 Peripheral vascular disease, unspecified (principal); I70.8 Atherosclerosis of other arteries; E78.00 Pure hypercholesterolemia, unspecified; F31.9 Bipolar disorder, unspecified; F41.9 Anxiety disorder, unspecified; N40.0 Benign prostatic hyperplasia without lower urinary tract symptoms; Z79.82 Long term (current) use of aspirin; Z79.899 Other long term (current) drug therapy; Z80.7 Family history of other malignant neoplasms of lymphoid, hematopoietic and related tissues; Z87.891 Personal history of nicotine dependence; Z88.0 Allergy status to penicillin
CPT/HCPCS: 35556; 35661; 36415; 71045; 71046; 80048; 82962; 85025; 85027; 85610; 85730; 86803; 86850; 86900; 86901; 93005; 93970; 97163; 97167; C1768; Q9967

== ENCOUNTER → 2025-04-03 12:27 | Outpatient (REF) | payer MEDICARE, OTHER, SELFPAY | LOC: RAD 12:27 | PROVIDERS: ATTENDING PHYSICIAN Registered Nurse | DX: I73.9 Peripheral vascular disease, unspecified (principal) | CPT/HCPCS: 93922; 93925 ==

== ENCOUNTER 2025-04-12 07:50 | Day surgery (SDC) | payer MEDICARE, OTHER, SELFPAY ==
[2025-04-12] VITALS (15 sets, daily range): BP systolic 99–142; BP diastolic 62–88; BMI 29.3
[2025-04-12 08:24] LABS: Hematocrit 42.8 % (39.0-52.0); Hemoglobin 14.7 g/dL (13.0-18.0); Mean Corp Hgb Conc. 34.3 g/dL (33.0-37.0); Mean Corpuscular Volume 85.6 fL (80.0-94.0); Platelet Count 230 10^3/uL (130-400); Red Cell Dist. Width 13.2 % (11.5-14.5)
[2025-04-12 08:34] LABS: INR 1.06; PT 14.3 Sec (11.4-14.6)
[2025-04-12 08:35] LABS: APTT 30.0 Sec (23.4-35.0)
[2025-04-12] MEDS: NSS 500 IV (08:35)
[2025-04-12 08:52] LABS: Calcium 9.6 mg/dl (8.4-10.2); Carbon Dioxide 21 mmol/L (22-30); Chloride 107 mmol/L (98-107); Estimated Creatinine Clearance 64 ml/min; Glucose 101 mg/dl (70-99); Potassium 4.7 mmol/L (3.5-5.1); Sodium 137 mmol/L (135-145); eGFR > 60.00
[2025-04-12 09:02] LABS: Blood Urea Nitrogen 16 mg/dl (9-20)
--- NOTE | 2025-04-12 11:49 | W.SUR.POST ---
Surgical Immediate Post Op
Note
Pre Op Diagnosis: PAD
Post Op Diagnosis: PAD
Procedure Performed: RLE arteriogram, right popliteal artery distal anastomosis balloon angioplasty, right AT balloon angioplasty, proximal profunda balloon angioplasty, angioplasty and stent to external iliac ([place]), balloon angioplasty stent to
right common iliac with VBX
Primary Surgeon: Yandel
Anesthesia: local and sedation
Estimated Blood Loss:<2cc
Fluids: see anesthesia flowsheet
Drains/Shunts: none
Specimens/Cultures: none
Doppler/Duplex/Angio (Y/N): Y
Complications: none
Operative Findings: successful stent placement
--- NOTE | 2025-04-12 12:28 | OR.RPT ---
Operative Report
Operative Report
PROCEDURE DATE: 04/12/2025
Preoperative diagnosis:
1. Severe peripheral arterial disease bilaterally status post right to left femoral to femoral artery bypass and concomitant right femoral (profunda) to ihqfo-hji-lfhc popliteal artery bypass with vein conduit.
2. Continued severe foot claudication type symptoms right lower extremity.
Postoperative diagnosis: Same
Procedure:
1. Duplex assisted cannulation of fluid of femoral to femoral artery bypass graft in the left groin.
2. Right lower extremity arteriogram.
3. Balloon angioplasty of distal anastomosis with 4 mm angioplasty balloon (distal anastomosis into the popliteal artery above the knee).
4. Balloon angioplasty of proximal anterior tibial artery with 3 mm angioplasty balloon.
5. Attempted recanalization of severe distal anterior tibial artery disease.
6. Balloon angioplasty of right profunda possible stenosis.
7. Balloon angioplasty and stent placement right external iliac artery with BotScanner 6-35 self-expanding stent with 7 mm x 4 cm stent.
8. Balloon angioplasty/stent placement right common iliac artery with [place] VBX 8 mm x 39 mm balloon mounted covered stent.
9. Left femoral angiogram.
10. Supervision interpretation.
Surgeon: Yandel
Grain Grader: None
Complications: None
Anesthesia: Local, sedation
Fluoroscopy:
21.5 min
224 mGy
41.65 gy.cm2
Indications for procedure:
Severe bilateral lower extremity claudication. Underwent major revascularization as noted above. Left lower extremity claudication symptoms completely resolved. Right calf claudication symptoms resolved. However he noted symptoms in the right
foot of pain with walking that was reminiscent of classic claudication in terms of distance related and relief with rest and the description of the pain. However it was in the foot. I discussed extensively the rarity of isolated foot claudication.
However he felt severely debilitated still and was unable to do anything functionally. We discussed therefore angiography with possible intervention to treat any underlying residual disease. Risk/benefit/alternatives also discussed. Patient
understood and wished proceed.
Description of procedure:
Patient was identified, brought to the operating room. Placed on the table in the supine position. After the adequate administration of anesthesia, the patient was prepped and draped in the standard surgical fashion. A standard preoperative
timeout was undertaken and everybody was in agreement with the plan.
The lewis of the femoral to femoral artery bypass was punctured in the left groin, and was accessed with a micropuncture kit under direct duplex ultrasound guidance. A 5 Cameroonian sheath was then advanced over a 0.035 inch wire. Initial angiography
demonstrated patent femoral to femoral artery bypass graft, patent anastomosis of the graft to the common femoral artery onto the origin of the profunda. The distal bypass graft proximally appeared nicely patent. However in order to better
visualize I advanced a glide catheter over a flopping of hydrophilic wire, and then my wire kept going up into the external iliac artery so I took that course anyway since I wanted to look at the inflow. I then passed the wire and catheter into the
common iliac/aorta. Aortogram and pelvic angiogram demonstrated patent aorta with some soft plaque noted. Right common iliac artery was patent but there was some soft plaque emanating from the aorta into that and there is irregularity as well.
(Note I had reviewed this on CT angiogram from prior as well). External iliac artery had a diffuse about 4 cm segment of stenosis but did not look severe on this obliquity, but looked more severe in re-review of CT scan
I elected to now do complete right lower extremity imaging. Therefore using a flopping of hydrophilic wire after I pulled my glide catheter back into the femoral to femoral artery bypass graft, I was able to cannulate under roadmap assisted
guidance the bypass graft (distal bypass graft). I then imaged the entirety of bypass graft down the leg. The bypass graft was widely patent. Distal anastomosis was patent. There may have been a mild stenosis but this was not clear. There was
some streaming of contrast that suggested there was maybe some turbulence there. It was not a definitive stenosis on two-dimensional angiography even in different obliquities. Beyond here there was three-vessel runoff proximally. The anterior
tibial artery at its origin had a moderate to high-grade stenosis focally. Distally the posterior tibial and anterior tibial arteries were the dominant runoff vessels. However at the ankle the posterior tibial artery essentially occluded and was
continuous with a loop like collateral but then gave rise to multiple collaterals on the foot which then reconstituted the distal plantar/arch which then gave rise to digital branches. Similarly the anterior tibial artery on the very distal ankle
onto the foot had almost beadlike fibromuscular dysplasia type appearance, but likely more plaque laden with severe luminal irregularities and areas of focal stenoses/occlusion over the course of about 4 cm or so.
At this point I exchanged over a Storq wire and the bypass graft for a 6 Cameroonian 45 cm sheath. The patient was given an appropriate dose of intravenous heparin. Next under roadmap assisted guidance I traversed the distal anastomosis relatively
easily, and then was able to gain wire access into the anterior tibial artery more distally also relatively easily. I then passed a CXI catheter and then exchanged for a 0.018 inch wire. I then performed balloon angioplasty of the proximal
anterior tibial artery with a 3 mm angioplasty balloon. I then ballooned the distal anastomosis with a 4 mm angioplasty balloon. There is no real waist in these balloons. Completion angiogram demonstrated good result. I was not convinced that
there had been a severe stenosis there but there may have been mild to moderate at least at both of those sites (more so at the anterior tibial artery origin). At this point I then guided my catheter into the anterior tibial artery. I then used
roadmap assisted guidance and a steerable 0.014 inch wire to try to traverse the distal anterior tibial artery severe diseased area. However despite multiple attempts I could not get this wire to traverse the area. It was focal multiple occlusions
in that area that seem like. I even exchanged for a 2.6 Cameroonian CXI catheter to gain better support to try to pass through. I then tried a weighted [employer] wire which also failed to be able to push through. These may have been collaterals which
appeared as the [place] artery very hard to tell. Regardless at this point I felt that there is nothing else to render for the distal disease infra malleolar in both the anterior tibial and posterior tibial arteries.
Therefore I now exchanged back for a 0.035 inch wire. I then performed balloon angioplasty of the profunda (the segment between the anastomosis of the femoral to femoral bypass and the origin of the distal bypass graft). With a 4 mm angioplasty
balloon. Completion angiogram did not really demonstrate a significant difference. I therefore then used a 5 mm balloon. Appeared to improve slightly. But even so the stenosis did not appear severe. It is just because his symptoms had been so
bad that I felt worth treating to take this off the table in terms of a source of symptoms. At this point I guided wires into the iliac system again retrograde using a flopping of hydrophilic wire and a glide catheter to steer into the iliac and
then the aorta. I then exchanged for a [place] wire. I then primarily stented the external iliac artery stenosis with a 7 mm x 4 cm BotScanner self-expanding 6-35 stent. This was post angioplastied with a 6 mm balloon. I then exchanged for a 7 Cameroonian
sheath and then placed a [place] VBX 8 mm x 39 mm balloon mounted covered stent in the common iliac artery. Completion angiogram demonstrated excellent resolution of any stenosis in the common iliac and external iliac arteries at this point. Good
flow through the entire segment. At this point I was very satisfied. I withdrew my catheters and wires. Left femoral angiogram demonstrated good puncture in the left common femoral artery with good filling of the femoral to femoral artery bypass
into the left SFA/profunda systems. No stenosis noted here. At this point I was satisfied. I felt that there is nothing further to render. The sheath was withdrawn after protamine was given reverse the heparin. Manual pressure was applied to
the puncture site. Hemostasis was fully achieved.
The patient tolerated procedure well. Upon completion he had excellent Doppler signals of the posterior tibial artery and anterior tibial artery at the ankle.
[2025-04-12] MEDS: NSS 1000 IV (13:00)
== END 2025-04-12 17:50 | disposition home or self-care (01) ==
LOC: CATH 07:50
PROVIDERS: ATTENDING PHYSICIAN Surgery Vascular Surgery; FAMILY PHYSICIAN Internal Medicine; OTHER PHYSICIAN Internal Medicine Cardiovascular Disease
DX: I70.213 Atherosclerosis of native arteries of extremities with intermittent claudication, bilateral legs (principal); Z79.01 Long term (current) use of anticoagulants; Z79.82 Long term (current) use of aspirin; Z79.899 Other long term (current) drug therapy
CPT/HCPCS: 37221; 37222; 75710; 80048; 85027; 85610; 85730; 86850; 86900; 86901; C1725; C1769; C1876; C1887; C1894; Q9967

== ENCOUNTER → 2025-05-16 08:24 | Outpatient (REF) | payer MEDICARE, OTHER, SELFPAY | LOC: RAD 08:24 | PROVIDERS: ATTENDING PHYSICIAN Surgery Vascular Surgery; FAMILY PHYSICIAN Internal Medicine | DX: I73.9 Peripheral vascular disease, unspecified (principal) | CPT/HCPCS: 93922; 93925; 93978 ==